=== PATIENT | male | born 1985 | race Caucasian/White ===

== ENCOUNTER 2019-09-13 18:04 | Emergency (ER) | payer SELFPAY ==
[~2019-09-13] VITALS: Ht 177.8 cm; Wt 73.5 kg
[2019-09-13] MEDS ORDERED: MORPHINE SULFATE INJ 2 MG/ML DISP.SYRIN ONE (18:29)
[2019-09-13] MEDS ORDERED: MORPHINE SULFATE INJ 4 MG/ML DISP.SYRIN ONE (18:29)
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
[2019-09-13] MEDS: MORPHINE SULFATE INJ 2 MG/ML DISP.SYRIN IM ONE (18:34)
--- NOTE | 2019-09-13 18:36 | NUR ---
TO TO RADIOLOGY ON [facility]
--- NOTE | 2019-09-13 18:50 | NUR ---
PT BACK FROM RADIOLOGY AND [employer] INFORM ME THAT THE PATIENT REFUSED THE CERVICAL CT. MADE AWARE.
--- NOTE | 2019-09-13 18:57 | NUR ---
GIRLFRIEND LEIGH ANN CALLED TO GET UPDATE ON HER BOYFRIEND.
[2019-09-13] MEDS ORDERED: HYDROMORPHONE 1 MG/1 ML DISP.SYRIN ONE (20:43)
[2019-09-13] MEDS: HYDROMORPHONE 1 MG/1 ML DISP.SYRIN IM ONE (20:48)
--- NOTE | 2019-09-13 21:28 | NUR ---
Patient discharged to home in stable condition. Written and verbal after care instructions given. Patient verbalizes understanding of instruction. Pt brought out of the ER on wheelchair.
[2019-09-13 21:29] VITALS: BP 119/75
== END 2019-09-13 21:34 | disposition home or self-care (01) ==
LOC: ER 18:30
DX: S82.54XA Nondisplaced fracture of medial malleolus of right tibia, initial encounter for closed fracture (principal); S52.131A Displaced fracture of neck of right radius, initial encounter for closed fracture; S01.01XA Laceration without foreign body of scalp, initial encounter; S90.412A Abrasion, left great toe, initial encounter; S50.812A Abrasion of left forearm, initial encounter; S50.811A Abrasion of right forearm, initial encounter; S30.810A Abrasion of lower back and pelvis, initial encounter; S70.312A Abrasion, left thigh, initial encounter; S70.311A Abrasion, right thigh, initial encounter; V23.4XXA Motorcycle driver injured in collision with car, pick-up truck or van in traffic accident, initial encounter; Y93.55 Activity, bike riding; Y92.89 Other specified places as the place of occurrence of the external cause; Y99.8 Other external cause status
CPT/HCPCS: 29125; 29505; 70450; 73080; 73610; 96372 ×2; 99284; J1170; J2270 ×2